=== PATIENT | male | born 1980 | race Caucasian/White ===

== ENCOUNTER 2018-01-13 07:48 | Emergency (ER) | payer MEDICAID ==
[~2018-01-13] VITALS: Ht 180.3 cm; Wt 89.0 kg
[2018-01-13] MEDS ORDERED: BACITRACIN ZINC OINT UDPKT TOP ONE (10:45)
[2018-01-13] MEDS ORDERED: LIDOCAINE HCL 1% 20ML VIAL (Pyxis) INJ MC ONE (10:45)
[2018-01-13] MEDS ORDERED: TETANUS, DIPHTHERIA, PERTUSSIS VAC/PF 0.5ML (>7YR OLD) IM ONE (10:45)
[2018-01-13 11:47] VITALS: BP 115/75
[2018-01-13] MEDS ORDERED: ACETAMINOPHEN 325MG TABLET PO ONE (12:45)
== END 2018-01-13 12:35 | disposition home or self-care (01) ==
LOC: ER 07:57
DX: S01.511A Laceration without foreign body of lip, initial encounter (principal); S01.81XA Laceration without foreign body of other part of head, initial encounter; Y04.2XXA Assault by strike against or bumped into by another person, initial encounter; Y93.89 Activity, other specified; Y92.89 Other specified places as the place of occurrence of the external cause; Z23 Encounter for immunization
CPT/HCPCS: 12013; 70450; 90471; 90715; 99284; J3490; X7700; Z7610

== ENCOUNTER 2018-01-15 19:22 | Emergency (ER) | payer MEDICAID ==
[~2018-01-15] VITALS: Ht 167.6 cm; Wt 86.0 kg
[2018-01-15 22:00] VITALS: BP 124/76
== END 2018-01-15 22:02 | disposition home or self-care (01) ==
LOC: ER 19:22
DX: S01.511D Laceration without foreign body of lip, subsequent encounter (principal); S01.81XD Laceration without foreign body of other part of head, subsequent encounter; X58.XXXD Exposure to other specified factors, subsequent encounter; Y93.89 Activity, other specified; Y99.8 Other external cause status; Y92.89 Other specified places as the place of occurrence of the external cause
CPT/HCPCS: 99281

== ENCOUNTER 2018-01-20 17:44 | Emergency (ER) | payer MEDICAID ==
[~2018-01-20] VITALS: Ht 177.8 cm; Wt 86.0 kg
[2018-01-20 20:40] VITALS: BP 110/75
== END 2018-01-20 21:11 | disposition home or self-care (01) ==
LOC: ER 19:21
DX: Z48.02 Encounter for removal of sutures (principal)
CPT/HCPCS: 99281